=== PATIENT | female | born 1960 | race Caucasian/White ===

== ENCOUNTER 2019-02-04 05:59 | Day surgery (SDC) | payer OTHER ==
[~2019-02-04] VITALS: Ht 170.2 cm; Wt 54.4 kg
[~2019-02-04 05:59] MED LIST: HYDR-3498 PO
[2019-02-04] MEDS ORDERED: LIDOCAINE 2% (SDV) 5 ML INJ ONE (07:00)
[2019-02-04 07:11] VITALS: Ht 170.2 cm; Wt 54.4 kg
--- NOTE | 2019-02-04 07:21 | PREAC ---
Date/Time of Note Date/Time of Note DATE: 02/04/19 TIME: :15 Anesthesia Eval and Record Evaluation Time Pre-Procedure Interview DATE: 02/04/19 TIME: 07:15 Age 58 Sex female NPO: 8 hrs Preoperative diagnosis GERD, SCREENING Planned procedure EGD AND COLONOSCOPY Past Medical History Past Medical History: Includes Neuro: Other (BACK SURGERY) Musculoskeletal: Osteoarthritis, Other (FIBROMYALGIA) Heme: Anemia Psych: Depression Surgery & Anesthesia Issues No known issue Meds Anticoagulation: No Beta Emiliano within 24 hr: No Reason Beta Emiliano not given: Pt. not on B-Emiliano Active Scripts Hydrocodone Bit-Acetaminophen* ([place]*) 5-325 Mg Tab, 1 TAB PO Q6 PRN for PAIN, #20 TAB Prov:BEATRIZ GARCIA 06/27/15 Meds reviewed: Yes Allergies Allergies Reviewed: Yes Labs/Studies Labs Reviewed: Reviewed by anesthesiologist test: N/A Pre-procedure Exam Airway: Adequate mouth opening, Adequate thyromental dist Mallampati: Mallampati II Teeth: Normal Lung: Normal Heart: Normal ASA Physical Status ASA physical status: 2 Emergency: None Planned Anesthetic General/MAC: MAC Planned Pain Management Parenteral pain med Pre-operative Attestations Prior to commencing anesthesia and surgery, the patient was re-evaluated, there was verification of: *The patient's identity *The results of appropriate recent lab work and preoperative vital signs *The above evaluation not changing prior to induction *Anesthetic plan, risk benefits, alternative and complications discussed with patient/family; questions answered; patient/family understands, accepts and wishes to proceed. DAMIÁN VICENTE Feb 04, 2019 07:21
[2019-02-04] MEDS ORDERED: ESTRADIOL 0.0375 MG (07:24)
[2019-02-04] MEDS ORDERED: LORA10TA3 PO (07:24)
[2019-02-04] MEDS ORDERED: PREM625 PO (07:24)
[2019-02-04] MEDS ORDERED: AZEL205.2 NASAL (07:24)
[2019-02-04] MEDS ORDERED: FLUT16SP17 NASAL (07:24)
[2019-02-04] MEDS ORDERED: FENTAnyl 50 MCG/ML VIAL IV PRN ×2 (07:30)
[2019-02-04] MEDS ORDERED: MEPERIDINE 25 MG INJ IV PRN (07:30)
[2019-02-04] MEDS ORDERED: hydrALAzine 20 MG INJ IV PRN (07:30)
[2019-02-04] MEDS ORDERED: ALBUTEROL 0.083% (NEB) 2.5 MG/3 ML AMP HHN PRN (07:30)
[2019-02-04] MEDS ORDERED: ONDANSETRON 4 MG INJ IV PRN (07:30)
[2019-02-04] MEDS ORDERED: LABETALOL HCL 20MG INJ IV PRN (07:30)
[2019-02-04] MEDS ORDERED: OXYCODONE/ACETAMINOPHEN (5/325) TAB PO PRN (07:30)
[2019-02-04 07:41] VITALS: BP 145/64; PULSE 58; RESP 20
[2019-02-04] MEDS ORDERED: PROPOFOL 40 ML ONE (08:16)
--- NOTE | 2019-02-04 08:33 | PAC ---
Date/Time of Note Date/Time of Note DATE: 02/04/19 TIME: 08:32 Post-Anesthesia Notes Post-Anesthesia Note Last documented vital signs Vital Signs Date Temp Pulse Resp B/P (MAP) Pulse Ox O2 O2 Flow FiO2 Time Delivery Rate 02/04/19 96.6 58 20 145/64 100 Room Air 0832 (91) Activity: WNL Respiratory function: WNL Cardiovascular function: WNL Mental status: Baseline Pain reasonably controlled: Yes Hydration appropriate: Yes Nausea/Vomiting absent: Yes DAMIÁN VICENTE Feb 04, 2019 08:33
== END 2019-02-04 13:32 | disposition home or self-care (01) ==
LOC: GIL 05:59
PROVIDERS: ATTEND Internal Medicine Gastroenterology
DX: Z12.11 Encounter for screening for malignant neoplasm of colon (principal); K57.30 Diverticulosis of large intestine without perforation or abscess without bleeding; K64.8 Other hemorrhoids; K29.30 Chronic superficial gastritis without bleeding
CPT/HCPCS: 43239; 45378; 88305; Z7610

== ENCOUNTER 2019-04-03 05:42 | Day surgery (SDC) | payer OTHER ==
[2019-04-03] VITALS (15 sets, daily range): BP systolic 117–177; BP diastolic 67–94; PULSE 70–92; RESP 11–24; Ht 170.2 cm; Wt 52.6 kg
[~2019-04-03] VITALS: Ht 170.2 cm; Wt 52.6 kg
[~2019-04-03 05:42] MED LIST changes: +AZEL205.2 NASAL; +ESTRADIOL 0.0375 MG; +FLUT16SP17 NASAL; +LORA10TA3 PO; +PREM625 PO
[2019-04-03] MEDS ORDERED: PHENYLephrine (100 MCG/ML) 10ML SYG IV ONE (05:43)
[2019-04-03] MEDS ORDERED: EPHEDrine 25 MG/5 ML SYG IV ONE (05:43)
[2019-04-03] MEDS ORDERED: SOD CHLORIDE 0.9% 1,000 ML IV SCH (07:00)
[2019-04-03] MEDS ORDERED: ESTR-32 TD (07:01)
[2019-04-03] MEDS ORDERED: OMEP40CA6 PO (07:02)
--- NOTE | 2019-04-03 07:25 | PREAC ---
Date/Time of Note Date/Time of Note DATE: 04/03/19 TIME: 07:23 Anesthesia Eval and Record Evaluation Time Pre-Procedure Interview DATE: 04/03/19 TIME: 07:23 Age 58 Sex female NPO: 8 hrs Preoperative diagnosis Leakage of the Breast Implants Planned procedure Removal of breast Implants and replacing them with new ones. Past Medical History Past Medical History: Includes Neuro: Other (s/p Cervical Fusion) GI: GERD Recreational drugs: Marijuana Surgery & Anesthesia Issues No known issue Meds Anticoagulation: No Beta Emiliano within 24 hr: No Reason Beta Emiliano not given: Pt. not on B-Emiliano Reported Medications Omeprazole* (Omeprazole*) 40 Mg Capsule.dr, 40 MG PO DAILY, #30 CAP 04/03/19 Estradiol (Estradiol) 1 Each Patch.tdsw, 1 EACH TD ONCE A WEEK .0375MG 04/03/19 Estrogens Conjugated* (Premarin*) 0.625 Mg Tab, 0.625 MG PO DAILY, TAB 02/04/19 Loratadine* (Loratadine*) 10 Mg Tablet, 10 MG PO DAILY, #30 TAB 02/04/19 Fluticasone Propionate* (Fluticasone Propionate* Nasal) 50 Mcg/[place] - 16 Gm [place].susp, 1 SPRAY NASAL BID, #1 BOTTLE TO EACH NOSTRIL 02/04/19 Azelastine HCl (Azelastine HCl) 205.5 Mcg/0.137 Ml [place].pump, 2 SPRAYS NASAL DAILY, #1 BOTTLE IN EACH NOSTRIL 02/04/19 Discontinued Reported Medications [estradiol 0.0375mg] No Conflict Check 02/04/19 Discontinued Scripts Hydrocodone Bit-Acetaminophen* ([place]*) 5-325 Mg Tab, 1 TAB PO Q6 PRN for PAIN, #20 TAB Prov:BEATRIZ GARCIA 06/27/15 Current Medications Sodium Chloride 1,000 ml @ 20 mls/hr Q24H IV Last administered on 04/03/19at 06:46; Admin Dose 20 MLS/HR; Start 04/03/19 at 07:00; Stop 04/05/19 at 08:59 Meds reviewed: Yes Allergies Coded Allergies: adhesive tape (Verified Allergy, Unknown, BLISTERS, 04/03/19) Allergies Reviewed: Yes Labs/Studies Labs Reviewed: Reviewed by anesthesiologist test: N/A Studies: ECG (n/a), CXR (n/a) Pre-procedure Exam Last vitals Vital Signs Date Temp Pulse Resp B/P (MAP) Pulse Ox O2 O2 Flow FiO2 Time Delivery Rate 04/03/19 98.7 70 18 117/85 98 Room Air 07:10 (96) Airway: Adequate mouth opening, Adequate thyromental dist Mallampati: Mallampati II Teeth: Normal Lung: Normal Heart: Normal ASA Physical Status ASA physical status: 2 Emergency: None Planned Anesthetic General/MAC: ETT Planned Pain Management Parenteral pain med Pre-operative Attestations Prior to commencing anesthesia and surgery, the patient was re-evaluated, there was verification of: *The patient's identity *The results of appropriate recent lab work and preoperative vital signs *The above evaluation not changing prior to induction *Anesthetic plan, risk benefits, alternative and complications discussed with patient/family; questions answered; patient/family understands, accepts and wishes to proceed. JERMAN GOMEZ MD Apr 03, 2019 07:25
[2019-04-03] MEDS ORDERED: CEFAZOLIN 1 GM INJ ONE (07:28)
[2019-04-03] MEDS ORDERED: ROCURONIUM 50 MG INJ ONE (07:28)
[2019-04-03] MEDS ORDERED: MIDAZOLAM 1 MG/ML 2 ML INJ ONE (07:28)
[2019-04-03] MEDS ORDERED: PROPOFOL 20 ML ONE (07:28)
[2019-04-03] MEDS ORDERED: FENTAnyl 50 MCG/ML VIAL ONE (07:28)
--- NOTE | 2019-04-03 07:33 | HPN ---
Date/Time of Note Date/Time of Note DATE: 04/03/19 TIME: 07:33 Interval H&P Admission Note Pt. seen H&P reviewed: No system changes GHAZALA MARSHALL MD Apr 03, 2019 07:33
[2019-04-03] MEDS ORDERED: GENTAMICIN 80 MG INJ ONE (07:47)
[2019-04-03] MEDS ORDERED: BACITRACIN/POLYMYXIN 28.35 GM OINT TOP ONE (07:47)
[2019-04-03] MEDS ORDERED: BUPIVACAINE 0.25%/EPI (SDV) 30 ML INJ ONE (07:47)
[2019-04-03] MEDS ORDERED: POLYMYXIN/BACITRACIN 1L IRRIG ONE (07:48)
[2019-04-03] MEDS ORDERED: BUPIVACAINE LIPOSOME/PF 266 MG/20 ML VIAL INFIL SCH (08:00)
[2019-04-03] MEDS ORDERED: DEXAMETHASONE 4 MG/ML 5 ML INJ ONE (08:35)
[2019-04-03] MEDS ORDERED: ONDANSETRON 4 MG INJ ONE (08:35)
[2019-04-03] MEDS ORDERED: METOCLOPRAMIDE 10 MG INJ ONE (08:35)
[2019-04-03] MEDS ORDERED: MEPERIDINE 25 MG INJ IV PRN (09:30)
[2019-04-03] MEDS ORDERED: SUGAMMADEX SODIUM 200 MG/2 ML VIAL IV ONE (09:30)
[2019-04-03] MEDS ORDERED: DIPHENHYDRAMINE 50 MG INJ IV PRN (09:30)
[2019-04-03] MEDS ORDERED: HYDROmorphONE 1 MG/5 ML IV SYRINGE IV PRN ×2 (09:30)
[2019-04-03] MEDS ORDERED: METOCLOPRAMIDE 10 MG INJ IV PRN (09:30)
[2019-04-03] MEDS ORDERED: OXYCODONE/ACETAMINOPHEN (5/325) TAB PO PRN (09:30)
[2019-04-03] MEDS ORDERED: LABETALOL HCL 20MG INJ IV PRN (09:30)
[2019-04-03] MEDS ORDERED: ONDANSETRON 4 MG INJ IV PRN ×2 (09:30→10:00)
[2019-04-03] MEDS ORDERED: EPHEDrine 25 MG/5 ML SYG IV PRN (09:30)
[2019-04-03] MEDS ORDERED: FENTAnyl 50 MCG/ML VIAL IV PRN ×2 (09:30)
--- NOTE | 2019-04-03 09:48 | PAC ---
Date/Time of Note Date/Time of Note DATE: 04/03/19 TIME: 09:47 Post-Anesthesia Notes Post-Anesthesia Note Last documented vital signs Vital Signs Date Temp Pulse Resp B/P (MAP) Pulse Ox O2 O2 Flow FiO2 Time Delivery Rate 04/03/19 97.6 87 16 148/70 100 face mask 8 L 09:45 (104) Activity: WNL Respiratory function: WNL Cardiovascular function: WNL Mental status: Baseline Pain reasonably controlled: Yes Hydration appropriate: Yes Nausea/Vomiting absent: Yes JERMAN GOMEZ MD Apr 03, 2019 09:48
[2019-04-03] MEDS ORDERED: HYDROCODONE/APAP (5/325) TAB PO PRN (10:00)
[2019-04-03] MEDS ORDERED: morphine 2 MG INJ IV PRN (10:00)
[2019-04-03] MEDS: HYDROmorphONE 1 MG/5 ML IV SYRINGE IV PRN ×2 (10:10→10:22)
[2019-04-03] MEDS: FENTAnyl 50 MCG/ML VIAL IV PRN ×2 (10:10→10:21)
--- NOTE | 2019-04-03 10:21 | OPR ---
Date/Time of Note Date/Time of Note DATE: 04/03/19 TIME: 10:10 Operative Report Free Text/Dictation Plastic Surgery Operative Report Preoperative diagnosis: right breast implant rupture Postoperative diagnosis: same Procedure: bilateral breast implant removal, capsulectomy, and replacement Surgeon:mela Alvarez.: LARISSA ferro Anesthesia: gen EBL: min IV fluids: per flow sheet Findings: n/a Complications: none Dispo: home Indications for procedure: Patient presents for bilateral breast implant removal and replacement. She would like to be slightly larger than she is currently. She does not know the size or type of her implant other than it is saline. The risks, benefits, alternatives of performing this procedure were discussed with the patient including risks of bleeding, infection, wound healing problems, asymmetry, change in nipple sensation, as well as implant related complications such as deflation, rotation, capsular contracture, and the patient states that she understands these risks and agrees to proceed with the procedure. All questions were answered and no guarantees were given with regards to the outcome of this procedure. Description of procedure: The patient was brought to the operating room at [facility] where general anesthesia was induced and she was prepped and draped in usual sterile fashion. 5 cc of 0.25% Marcaine with 1: 200,000 epinephrine were injected into the planned incision site in the inf ramammary fold of each breast. Attention was first turned to the left breast where an incision was made in the inframammary fold with a 10 blade and the electrocautery was used to dissect the breast implant capsule. The capsule was then opened with the cautery and the implant was removed. It was a textured saline anatomic shaped implant. It appeared to be intact. It was drained on the back table and had approximately 360cc present within it. The pocket was inspected, and multiple scoring capsulotomies were carried out to help allow the new implant to sit properly. A substantial portion of the capsule was removed along with a superior capsulotomy. The breast was irrigated antibiotic irrigation and hemostasis was achieved with electrocautery. Attention was turned to the contralateral breast. A similar procedure was carried out. The incision was made in the inframammary fold with a 10 blade and electrocautery was used to dissect to the breast implant capsule. The capsule was opened with the cautery and the implant was removed. The implant was deflated. Once again, multiple scarring capsulotomies were carried out in order to help with the new implant set properly. A substantial portion of the capsule was removed along with a superior capsulotomy as well. The breast was irrigated with antibiotic irrigation and hemostasis was achieved with the electrocautery. The pockets were inspected, and the right inframammary fold was noted to be lower than the left. Therefore a capsulorrhaphy was performed with running and interrupted 2-0 PDS suture along the right inframammary fold. This stabilized the fold. A popcorn capsulorrhaphy was performed on the left inframammary fold to help stabilize it as it had not dropped as far as the right and did not need a suture repair. Next, additional medial capsulotomies were carried out in order to rule out increased projection and a lateral popcorn capsulorrhaphy was performed once again on both sides to help implant sit more medial. The pockets were inspected once again and seem to be symmetric. Both breasts were irrigated with antibiotic irrigation and hemostasis was achieved with the cautery. Betadine was infused into the pocket and was allowed to sit for 5 minutes before the excess was discarded. 30 cc of dilute Exparel were injected around the breast to help with postoperative analgesia. Therefore gloves and instruments were changed, and an Allergan SRM 375cc implant SN [id number] was opened, rinsed in antibiotic irrigation and was inserted into the left breast with minimal touch technique using a funnel. The same size and style implant serial number [id number] was opened, rinsed in antibiotic irrigation and was inserted into the right breast with minimal touch technique using a funnel. The patient was sat up on operating table. The breasts were symmetric. Therefore she was sat back down. The incisions were closed with a deep layer of 2-0 Vicryl suture followed by 3-0 Vicryl suture and 4-0 Monocryl suture on the skin. The patient tolerated procedure well, there were no complications, follow-up information and wound care instructions were given Preoperative Diagnosis right breast implant deflation Postoperative Diagnosis same Operation/Procedure Performed bilateral implant removal, capsulectomy, replacement Surgeon see signature line Drill Sharpener Operator LARISSA ferro Anesthesia Type: general Estimated Blood Loss: minimal Transfusion none Specimen none Grafts/Implants none Complications none Procedure Description see dictation GHAZALA MARSHALL MD Apr 03, 2019 10:20
== END 2019-04-03 11:25 | disposition home or self-care (01) ==
LOC: SDS 05:42
PROVIDERS: ATTEND Surgery Plastic and Reconstructive Surgery
DX: T85.43XA Leakage of breast prosthesis and implant, initial encounter (principal); Y83.8 Other surgical procedures as the cause of abnormal reaction of the patient, or of later complication, without mention of misadventure at the time of the procedure; M81.0 Age-related osteoporosis without current pathological fracture; M26.609 Unspecified temporomandibular joint disorder, unspecified side; Z90.710 Acquired absence of both cervix and uterus; K21.9 Gastro-esophageal reflux disease without esophagitis; T85.43XD Leakage of breast prosthesis and implant, subsequent encounter
CPT/HCPCS: 19371; 19380; C9290; J0690; J1100; J1170; J1580; J2250; J2370; J2405; J2765; J3010; Z7512; Z7610